=== PATIENT | female | born 2005 | race Caucasian/White ===

== ENCOUNTER 2023-04-08 12:52 | Emergency (ER) | payer OTHER ==
[2023-04-08] MEDS ORDERED: HYDROcodone/Acetaminophen 5/325 mg Tablet ONE (16:19)
== END 2023-04-08 16:45 | disposition home or self-care (01) ==
LOC: CSHERS 12:52
DX: S93.402A Sprain of unspecified ligament of left ankle, initial encounter (principal); E03.9 Hypothyroidism, unspecified; Y30.XXXA Falling, jumping or pushed from a high place, undetermined intent, initial encounter

== ENCOUNTER 2023-06-09 12:56 | Emergency (ER) | payer OTHER, SELFPAY ==
[2023-06-09 13:59] LABS: SARS-CoV-2 NAA Rapid Test Not Detected (NotDetected)
[2023-06-09] MEDS ORDERED: Dexamethasone 10 MG/ML VIAL ONE (14:21)
== END 2023-06-09 14:24 | disposition home or self-care (01) ==
LOC: CSHERS 12:56
DX: J02.9 Acute pharyngitis, unspecified (principal); B34.9 Viral infection, unspecified; Z20.822 Contact with and (suspected) exposure to COVID-19
CPT/HCPCS: 87081; 87430; 99283; J1100; U0002